=== PATIENT | male | born 1960 | race American Indian/Alaskan Native ===

== ENCOUNTER 2017-04-14 06:26 | Day surgery (SDC) | payer MEDICAID, OTHER ==
[~2017-04-14 06:26] MED LIST: Lactated Ringers 1,000 ML IV SCH; ceFAZolin 2 GM in Premix Bag 1 BAG IV ONE
--- NOTE | 2017-04-14 08:47 | PCM.PREANE ---
Preanesthetic Assessment - Anesthesia/Transfusion/Family Hx Anesthesia History: Prior Anesthesia Without Reaction Family History of Anesthesia Reaction: No Transfusion History: No Prior Transfusion(s) Intubation History: Unknown - Review of Systems General: No Symptoms Pulmonary: No Symptoms Cardiovascular: No Symptoms Gastrointestinal: No Symptoms Neurological: No Symptoms Other: Reports: None - Physical Assessment O2 Sat by Pulse Oximetry: 96 Respiratory Rate: 16 Vital Signs: Last Vital Signs Temp 36.4 C 04/14/17 08:15 Pulse 75 04/14/17 08:15 Resp 16 04/14/17 08:15 BP 132/84 04/14/17 08:15 Pulse Ox 96 04/14/17 08:15 Height: 1.68 m Weight: 62.596 kg ASA Class: 2 Mental Status: Alert & Oriented x3 Airway Class: Mallampati = 2 Dentition: Reports: Missing Tooth/Teeth (front upper teeth) Thyro-Mental Finger Breadths: 3 Mouth Opening Finger Breadths: 3 ROM/Head Extension: Full Lungs: Clear to Auscultation, Normal Respiratory Effort Cardiovascular: Regular Rate, Regular Rhythm - Allergies Allergies/Adverse Reactions: Allergies Allergy/AdvReac Type Severity Reaction Status Date / Time No Known Allergies Allergy Verified 04/10/17 14:44 - Blood Blood Available: No - Anesthesia Plan Pre-Op Medication Ordered: None - Acknowledgements Anesthesia Type Planned: General Anesthesia Pt an Appropriate Candidate for the Planned Anesthesia: Yes Alternatives and Risks of Anesthesia Discussed w Pt/Guardian: Yes Pt/Guardian Understands and Agrees with Anesthesia Plan: Yes PreAnesthesia Questionnaire HEENT History: Reports: Glaucoma Cardiovascular History: Reports: Hypertension Gastrointestinal History: Reports: Cholelithiasis (s/p open cholecystectomy about 10 years ago), GERD Musculoskeletal History: Reports: RA - Past Surgical History GI Surgical History: Reports: Cholecystectomy - SUBSTANCE USE Smoking Status *Q: Former Smoker Recreational Drug Use History: No - HOME MEDS Home Medications: Home Meds Cholecalciferol (Vitamin D3) [Vitamin D3] 1,000 unit PO DAILY 04/10/17 [History] Gabapentin [Neurontin] 600 mg PO QAM 04/10/17 [History] Lisinopril 5 mg PO DAILY 04/10/17 [History] Mometasone/Formoterol [Dulera 100-5 MCG] 1 puff INH BID 04/10/17 [History] Omeprazole 20 mg PO QAM 04/10/17 [History] - CURRENT (IN HOUSE) MEDS Current Meds: Current Medications Lactated Ringer's (Ringers, Lactated) 1,000 mls @ 125 mls/hr IV ASDIRECTED KATRIN Last Admin: 04/14/17 08:16 Dose: 125 mls/hr Discontinued Medications Cefazolin Sodium/Dextrose 2 gm (/ Premix) 50 mls @ 100 mls/hr IV ONETIME ONE Stop: 04/14/17 05:29
[2017-04-14] MEDS ORDERED: Midazolam 1 MG/ML 2 ML SDV ONE (09:07)
[2017-04-14] MEDS ORDERED: HYDROmorphone 2 MG/ML SDV ONE (09:07)
[2017-04-14] MEDS ORDERED: Ondansetron 4 MG/2 ML SDV ONE (09:08)
[2017-04-14] MEDS ORDERED: diphenhydrAMINE 50 MG/ML SDV ONE (09:08)
[2017-04-14] MEDS ORDERED: Lidocaine 2% 5 ML SDV ONE (09:08)
[2017-04-14] MEDS ORDERED: Ketorolac 30 MG/ML SDV ONE (09:08)
[2017-04-14] MEDS ORDERED: Propofol 200 MG/20 ML SDV ONE (09:08)
[2017-04-14] MEDS ORDERED: Bupivacaine 25%/EPINEPHrine/PF 30 ML ONE (09:14)
[2017-04-14] MEDS ORDERED: Octyl 2-Cyanoacrylate 1 Tube ONE (09:19)
[2017-04-14] MEDS ORDERED: ceFAZolin 1 GM Vial ONE (09:26)
[2017-04-14] MEDS ORDERED: fentaNYL 100 MCG/2 ML SDV IVPUSH PRN (10:09)
[2017-04-14] MEDS ORDERED: Rocuronium 10 MG/ML 10 ML Syringe ONE (10:31)
[2017-04-14] MEDS ORDERED: Neostigmine Methylsulfate 1 MG/ML 5 ML Syringe ONE (10:31)
--- NOTE | 2017-04-14 11:18 | PCM.OPNOTE ---
- General Post-Op/Procedure Note Date of Surgery/Procedure: 04/14/17 Operative Procedure(s): ing hernia repair with mesh, R Findings: mod direct hernia, and small indirect hernia w lipoma, rep w custom mesh and plug, small size; [id number] Pre Op Diagnosis: ing hernia r Post-Op Diagnosis: same Anesthesia Technique: General ET Tube Primary Surgeon: Liban Kc Complications: None Condition: Good
[2017-04-14] MEDS ORDERED: Acetaminophen/oxyCODONE 325-7.5 MG Tab PO ONE ×2 (11:22→13:00)
--- NOTE | 2017-04-14 18:32 | OR ---
SURGEON: Liban Kc MD DATE OF PROCEDURE: 04/14/2017 PREOPERATIVE DIAGNOSIS: Inguinal hernia on the right. POSTOPERATIVE DIAGNOSIS: Inguinal hernia on the right. PROCEDURE PERFORMED: Right inguinal hernia repair with mesh. COMPLICATIONS: None. FINDINGS: The patient had a pantaloon hernia, has a moderate size direct hernia, a small size indirect hernia, and a small custom-made marlex mesh plug was inserted. PROCEDURE IN DETAIL: The patient was taken to the operating room and placed in supine position. Upon induction of general endotracheal anesthesia, the patient's abdomen was prepped and draped in sterile fashion and time-out had been called, patient identified, procedure identified, antibiotic identified, and procedure started. For this patient, the hernia was on the right side, and Ioban was applied prophylactically. The patient was status post GET, and the patient was prepped and draped in the sterile fashion. After assessment of appropriate landmark, a curvilinear incision was made two fingers above the inguinal crease, and using a skin scalpel and electrocautery, the dissection and carried down to expose external oblique, and using a 15 blade external oblique on top of the cord was incised a small hole and through cutting along the fiber of the external oblique, the cord was exposed carefully. With blunt and sharp dissection, the cord was dissected out from the inguinal floor and careful dissection of the cremasteric muscle, a whitish hernia sac was located, which contained lipoma and this was then carefully dissected out from the cord structure. Prior to doing this, the vas deferens was located and identified and pushed to the side to prevent from damage. The lipoma and hernia sac were then pushed back into the peritoneal cavity and a small plug was inserted followed with reinforce of the inguinal floor by a custom-made Marlex mesh. Prior to doing these examination, we noted that there was a moderate size direct hernia and small size indirect hernia along the cord, this was a pantaloon hernia. The small hernia contained some lipoma and all the dissections from the construction were pushed back into the peritoneal cavity. I reinforced the inguinal floor with the use of mesh. The mass was anchored to the lateral border of the rectus muscle with the use of 2-0 Prolene and the first stitches to the periosteum of the pubis. The lateral aspect of the mesh was anchored to the Poupart ligament. The cord was exited through the custom-made hole and the two tails of the mesh was put together by use of one stitch. Upon finishing, the custom-made cord opening was noted to be not too tight, not too loose and further irrigation and external oblique was repaired by use of 2-0 Vicryl and then 3-0 Vicryl was used to close the Ashlee fascia. Skin staple was applied to approximate the skin followed by appropriate dressing. Upon conclusion of the surgery and examination, the patient had two testes and symmetrical descend. The patient was awakened, extubated, and transferred to the recovery room in hemodynamically stable condition. Dr. Kc was present throughout the whole procedure. MAMI / JAMARI /[id number] MTDMelanie
== END 2017-04-14 13:25 | disposition home or self-care (01) ==
LOC: MW.SDS 06:26
PROVIDERS: ATTEND Surgery
DX: K40.90 Unilateral inguinal hernia, without obstruction or gangrene, not specified as recurrent (principal); Z79.899 Other long term (current) drug therapy; Z90.49 Acquired absence of other specified parts of digestive tract
CPT/HCPCS: 49505; A9270; C1781; J0690; J1170; J1200; J1885; J2250; J2405; J3010; J7120; 00830; J2704